=== PATIENT | female | born 1945 | race Caucasian/White ===

== ENCOUNTER 2018-07-29 07:33 | Emergency (ER) | payer MEDICARE, BC ==
--- NOTE | 2018-07-29 08:19 | EDM.PDOC ---
ED HPI GENERAL MEDICAL PROBLEM - General Chief Complaint: Bite:Animal, Insect Stated Complaint: TICK BITE ON MID RIFF AREA Time Seen by Provider: 07/29/18 08:00 Source of Information: Reports: Patient, Family History Limitations: Reports: No Limitations - History of Present Illness INITIAL COMMENTS - FREE TEXT/NARRATIVE: 73-year-old female was bit by a tick a little over a week ago on the right lateral abdomen, over the past 48 hours she's developed expanding erythema and a typical erythema migrans lesion on the right anterior abdomen. It is now 9-10 cm wide, central dark erythema with peripheral darker erythema. Over the past 12 hours she's also developed some mild malaise and felt feverish overnight. Associated Symptoms: Reports: Fever/Chills, Malaise. Denies: Cough, Diaphoresis , Nausea/Vomiting, Shortness of Breath Generalized Pain Score (Numeric/FACES): 4 - Related Data Allergies Allergy/AdvReac Type Severity Reaction Status Date / Time No Known Allergies Allergy Verified 07/29/18 07:51 Home Meds: Home Meds Escitalopram [Lexapro] 10 mg PO DAILY 07/29/18 [History] atorvaSTATin [Lipitor] 20 mg PO BEDTIME 07/29/18 [History] buPROPion [Wellbutrin] 75 mg PO BEDTIME 07/29/18 [History] Past Medical History HEENT History: Reports: Impaired Vision Cardiovascular History: Reports: High Cholesterol Gastrointestinal History: Reports: Chronic Constipation, Chronic Diarrhea, Other (See Below) 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: Psychiatric History: Reports: Depression - Past Surgical History Head Surgeries/Procedures: Reports: None Cardiovascular Surgical History: Reports: None Dermatological Surgical History: Reports: None Social & Family History - Tobacco Use Smoking Status *Q: Never Smoker Second Hand Smoke Exposure: No - Caffeine Use Caffeine Use: Reports: Coffee - Alcohol Use Days Per Week of Alcohol Use: 7 Number of Drinks Per Day: 2 Total Drinks Per Week: 14 - Recreational Drug Use Recreational Drug Use: No ED ROS GENERAL - Review of Systems Review Of Systems: See Below Constitutional: Reports: Fever, Chills, Malaise. Denies: Decreased Appetite HEENT: Reports: No Symptoms Respiratory: Denies: Shortness of Breath Cardiovascular: Denies: Chest Pain GI/Abdominal: Denies: Nausea, Vomiting : Reports: No Symptoms Musculoskeletal: Reports: No Symptoms Neurological: Denies: Headache ED EXAM, ANIMAL BITE - Physical Exam Exam: See Below Exam Limited By: No Limitations General Appearance: Alert, No Apparent Distress Respiratory/Chest: No Respiratory Distress, Lungs Clear Neurological: Alert, Oriented Skin Exam: Other (On the right abdomen there is a central dark erythematous lesion with what appears to be a miniscule partial, with surrounding pinkish macular rash and a target deeper red ring fairly typical of erythema migrans on the right lower abdomen) Course - Vital Signs Last Recorded V/S: Last Vital Signs Temp 96.8 F 07/29/18 07:54 Pulse 92 07/29/18 07:54 Resp 16 07/29/18 07:54 BP 136/68 07/29/18 07:54 Pulse Ox 95 07/29/18 07:54 - Re-Assessments/Exams Free Text/Narrative Re-Assessment/Exam: 07/29/18 08:17 Patient will be started on doxycycline 100 mg twice a day for full 3 weeks. She [place] from out of town and will not benefit from blood tests as she is leaving today and they will be away from healthcare for the next several weeks. Departure - Departure Time of Disposition: 08:27 Disposition: Home, Self-Care 01 Condition: Good Clinical Impression: Erythema migrans (Lyme disease) - Discharge Information Instructions: Tick Bite Information, Adult, [id number] Referrals: PCP,None [Primary Care Provider] - Forms: ED Department Discharge Care Plan Goals: Take antibiotic twice daily until gone. Consider rechecking in 3-4 days if not improving satisfactorily, otherwise return anytime if worsening such as vomiting the medication or serious headache or confusion.
== END 2018-07-29 08:27 | disposition home or self-care (01) ==
LOC: JP.ED 07:33
DX: A26.0 Cutaneous erysipeloid (principal); F32.9 Major depressive disorder, single episode, unspecified; Z79.899 Other long term (current) drug therapy
CPT/HCPCS: 99282